=== PATIENT | male | born 1965 | race Caucasian/White ===

== ENCOUNTER 2017-03-23 23:14 | Emergency (ER) | payer OTHER ==
--- NOTE | 2017-03-24 01:38 | ED ---
Upper Extremity Pain - HPI Summary HPI Summary: Pt here w/ Rt UE edema x 1 week. Has been getting progressively worse since executing "as many push ups as possible in 30 seconds" last week. 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 He does admit if he overuses this arm with exercise, etc it swells - he' s always attributed this to poor circulation as a result of his DVT here. He's here today as swelling is worse than usual. Arm was sore a few days after but pain is no longer present. Denies numbness, tingling, weakness, fever, chills, N /V/D, chest pain, SOB, weight change, night sweats. His urine was a little darker than usual the day after but not brown/red and has cleared up since. Denies h/o cancer. - History of Current Complaint Chief Complaint: EDExtremityUpper Stated Complaint: POSS BLOOD CLOT/RIGHT ARM Time Seen by Provider: 03/24/17 00:22 Hx Obtained From: Patient - Allergies/Home Medications Allergies/Adverse Reactions: Allergies Allergy/AdvReac Type Severity Reaction Status Date / Time Gluten Meal Allergy GI Upset Verified 03/24/17 02:53 Pumpkin Seed Oil Allergy Swelling Verified 03/23/17 23:20 Of Face,Lips,& Throat Tree Nuts Allergy Swelling Verified 03/23/17 23:20 Of Face,Lips,& Throat PMH/Surg Hx/FS Hx/Imm Hx Previously Healthy: Yes Endocrine/Hematology History: Denies: Hx Anticoagulant Therapy Cardiovascular History: Reports: Hx Deep Vein Thrombosis - Rt UE Infectious Disease History: No Infectious Disease History: Denies: Traveled Outside the [place] in Last 30 Days - Family History Known Family History: Positive: None - Social History Lives: With Family Alcohol Use: Weekly Hx Substance Use: No Substance Use Type: Reports: None Hx Tobacco Use: No Smoking Status (MU): Never Smoked Tobacco Review of Systems Constitutional: Negative Cardiovascular: Negative Respiratory: Negative Gastrointestinal: Negative Positive: see HPI Positive: Edema Skin: Negative Neurological: Negative Psychological: Normal All Other Systems Reviewed And Are Negative: Yes Physical Exam Triage Information Reviewed: Yes Vital Signs On Initial Exam: Initial Vitals Temp Pulse Resp BP Pulse Ox 97.0 F 71 18 144/93 99 03/23/17 23:16 03/23/17 23:16 03/23/17 23:16 03/23/17 23:16 03/23/17 23:16 Vital Signs Reviewed: Yes Appearance: Positive: Well-Appearing, No Pain Distress, Well-Nourished Skin: Positive: Warm, Dry - appears to have 3rd spacing in his RT UE Eyes: Positive: EOMI ENT: Positive: Hearing grossly normal, Pharynx normal - mucosa moist Neck: Positive: Supple, Nontender, No Lymphadenopathy Respiratory/Lung Sounds: Positive: Breath Sounds Present Cardiovascular: Positive: RRR, Pulses are Symmetrical in both Upper and Lower Extremities Abdomen Description: Positive: Nontender, Soft Musculoskeletal: Positive: Normal, Strength/ROM Intact. Negative: Pain @ Neurological: Positive: Normal, Sensory/Motor Intact, Alert, Oriented to Person Place, Time, CN Intact II-III Psychiatric: Positive: Normal - calm, pleasant, cooperative - [place] Coma Scale Coma Scale Total: 15 Diagnostics - Vital Signs Vital Signs Temp Pulse Resp BP Pulse Ox 03/23/17 23:16 97.0 F 71 18 144/93 99 - Laboratory Result Diagrams: 03/24/17 02:26 Lab Statement: Any lab studies that have been ordered have been reviewed, and results considered in the medical decision making process. Course/Dx - Course Course Of Treatment: Pt presents w/ Rt UE edema x 1 week - started and progressively worse since peforming push-ups last week. Initially had some pain but this has resolved now. Denies numbness, tingling, weakness and is able to move arm well - just feels "fat". H/o DVT here at 18 y.o. possibly provoked by overuse? No residual clots however pt admits when he overuses this arm, it tends to swell. It has not swollen this long or this much before so decided to come in and have it assessed. U/S neg for DVT. Will assess for other pathologies that may trigger this presentation such as PE, lymphadenopathy, occult DVT. CT and labs were ordered. Discussed and signed out to Dr. Boateng. - Diagnoses Provider Diagnoses: Edema of upper extremity Discharge - Discharge Plan Condition: Stable Disposition: OTHER Discharge Disposition Comment: signed out to Dr. Boateng
[2017-03-24 02:42] LABS: Hematocrit 41 % (42-52); Hemoglobin 13.6 g/dl (14.0-18.0); Mean Corpuscular HGB Conc 33 g/dl (31-36); Mean Corpuscular Hemoglobin 29 pg (27-31); Mean Corpuscular Volume 88 fL (80-94); Mean Platelet Volume 8 um3 (7.4-10.4); Red Blood Count 4.65 10^6/ul (4.0-5.4); Red Cell Distribution Width 16 % (10.5-15); White Blood Count 6.8 10^3/ul (3.5-10.8)
[2017-03-24 02:43] LABS: Urine Bilirubin Negative (Negative); Urine Glucose Negative (Negative); Urine Nitrite Negative (Negative)
[2017-03-24 02:54] LABS: Albumin 3.8 g/dL (3.2-5.2); BUN/Creatinine Ratio 17.9 (8-20); EGFR African American 134.4 (>60); EGFR Non-African American 104.5 (>60); Globulin 2.4 g/dL (2-4); Potassium 3.9 mmol/L (3.5-5.0); Total Bilirubin 0.3 mg/dL (0.2-1.0); Total Protein 6.2 g/dL (6.4-8.9)
[2017-03-24] MEDS ORDERED: Iohexol 350* (CONTRAST) 500 ML MDV IV ONE (02:56)
[2017-03-24] MEDS ORDERED: NS 0.9% 1000 ML* 2,000 ML IV ONE (04:19)
--- NOTE | 2017-03-24 07:03 | ED ---
Michael King Nikita, scribed for Earle Boateng MD on 03/24/17 at 0450 . Progress - Progress Note Progress Note: Patient was signed out from Dr. Jackson, pending disposition, awaiting CTA Chest. CTA chest reveals no pulmonary embolism. No aortic dissection or aneurysm. No pneumonia or pleural effusions. No bulky hilar, mediastinal or axillary lymphadenopathy. ED physician has reviewed this radiology report and agrees. Consulted Dr. Marie at 0407 who recommends to ask the pt whether he wants to be admitted to be safe or to give him fluids and wait to see if his creatinine kinase lowers. If it lowers, then he can be discharged. Re-eval at 0414 and discussed with pt results and plans to stay in the ED, take the fluids , then recheck the creatinine kinase again. BP noted and advised to follow up with PCP. Medications reviewed. Allergies noted. Course/Dx - Course Course Of Treatment: Pt presents w/ Rt UE edema x 1 week - started and progressively worse since peforming push-ups last week. Initially had some pain but this has resolved now. Denies numbness, tingling, weakness and is able to move arm well - just feels "fat". H/o DVT here at 18 y.o. possibly provoked by overuse? No residual clots however pt admits when he overuses this arm, it tends to swell. It has not swollen this long or this much before so decided to come in and have it assessed. U/S neg for DVT. Will assess for other pathologies that may trigger this presentation such as PE, lymphadenopathy, occult DVT. CT and labs were ordered. Discussed and signed out to Dr. Boateng. - Diagnoses Provider Diagnoses: Edema of upper extremity, Elevated creatine kinase level The documentation as recorded by the Michael reilly Nikita accurately reflects the service I personally performed and the decisions made by me, Earle Boateng MD.
--- NOTE | 2017-03-24 07:38 | RAD ---
INDICATION: Right arm pain. COMPARISON: There are no prior studies available for comparison. TECHNIQUE: Multiple real-time, color flow and Doppler tracings of the right upper extremity were obtained. FINDINGS: The axillary, brachial, basilic and cephalic veins all demonstrate normal compressibility, augmentation with compression and phasic response with respiration. The radial and ulnar veins demonstrate normal compressibility. The subclavian and internal jugular veins also demonstrate normal color flow imaging and phasic response with respiration. IMPRESSION: NO EVIDENCE FOR DEEP VENOUS THROMBOSIS.
[2017-03-24 07:45] VITALS: BP 146/83
--- NOTE | 2017-03-24 07:46 | RAD ---
INDICATION: Right upper extremity edema COMPARISON: None TECHNIQUE: Axial source images were acquired following the administration of 73 mL Omnipaque [address] angiographic technique. Coronal and sagittal reconstructed images were constructed and reviewed. FINDINGS: There there are no filling defects in the pulmonary arteries to indicate acute pulmonary embolic disease. Pleural-based linear density along the superior lateral margin of the left lower lobe is most consistent with atelectasis. There are no focal infiltrates or effusions. There are no pulmonary parenchymal masses. The heart is normal in size. There is no evidence of pericardial effusion. There is no evidence of aortic aneurysm or dissection. Contrast injected into the right upper extremity is seen bypassing the right subclavian vein, instead filling numerous collateral veins to reach the superior vena cava. There is no mediastinal, hilar, or axillary lymphadenopathy. Mild degenerative changes of thoracic spine includes loss of intervertebral disc height. Limited views of the upper abdomen show no abnormalities. IMPRESSION: 1. No CT of evidence of pulmonary embolism. 2. 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 Please correlate to a history of central venous catheter(s) in the right subclavian vein.
== END 2017-03-24 08:01 | disposition home or self-care (01) ==
LOC: ED 23:14
DX: R60.0 Localized edema (principal); R74.8 Abnormal levels of other serum enzymes
CPT/HCPCS: 36415; 71275; 80053; 81003; 82550; 85025; 85610; 85730; 99282; Q9967